=== PATIENT | male | born 1980 | race Caucasian/White ===

== ENCOUNTER 2017-03-07 20:46 | Emergency (ER) | payer OTHER ==
[~2017-03-07] VITALS: Ht 180.3 cm; Wt 102.1 kg
--- NOTE | 2017-03-07 21:07 | ED GI/GU/ABDOMINAL COMPLAINT ---
History of Present Illness General Chief Complaint: General Adult Stated Complaint: "THINK I HAVE A KIDNEY STONE" BACK PAIN PER PT Source: patient, family Exam Limitations: no limitations Vital Signs & Intake/Output Vital Signs & Intake/Output Vital Signs Date Time Temp Pulse Resp B/P B/P Pulse O2 O2 Flow FiO2 Mean Ox Delivery Rate 03/074 98.1 62 18 119/71 98 Room Air 03/07 2247 97.9 60 16 116/71 98 Room Air 03/073 98.4 87 18 144/88 98 Room Air ED Intake and Output 03/08 0000 03/07 1200 Intake Total 1000 Output Total Balance 1000 Intake, IV 1000 Patient 225 lb Weight Weight Reported by Patient Measurement Method Allergies Coded Allergies: Penicillins (ANAPHILACTIC 03/07/17) Reconcile Medications Ondansetron (Zofran Odt) 4 MG TAB.RAPDIS 1 TAB SL TID PRN nausea Oxycodone HCl/Acetaminophen (Percocet 5-325 MG Tablet) 5 MG-325 MG TABLET 1 TAB PO Q6H PRN PAIN Tamsulosin HCl (Flomax) 0.4 MG CAP.ER.24H 1 CAP PO DAILY PRN kidney stone Triage Note: PT TO TRIAGE WITH C/O R FLANK PAIN 05/22 AND NAUSEA SINCE MONDAY. HX OF KIDNEY STONES. PT PASSED SMALL KIDNEY STONE ON MONDAY AND HAD BLOOD IN URINE, BUT PAIN NOT SUBSIDED. VSS. Triage Nurses Notes Reviewed? yes HPI: Patient is a 36-year-old male presents complaining of right flank pain that radiates to the right lower quadrant. Patient reports that pain has been over the past 1 week. Pain similar to previous kidney stone pain which he normally takes a dose of pain medication and symptoms improved. Patient last took a dose of pain medication over the weekend, continues with pain. Patient was having hematuria over the weekend which has since resolved. Nausea and chills at onset over the past couple of days which is unusual for his previous episodes of kidney stones. Patient passed multiple kidney stones over the weekend. Pain is currently 6-7 out of 10. Last bowel movement was 3 days ago. Patient denies fevers, vomiting, dysuria, frequency. (RADHA MARTINEZ,ORLANOD) Past History Travel History Traveled to [place] past 21 day No Medical History Any Pertinent Medical History? see below for history Renal: nephrolithiasis Surgical History Surgical History: non-contributory Psychosocial History What is your primary language Mozambican Tobacco Use: Never used Family History Hx Contributory? No (OR[place]O PALACIO) Review of Systems Review of Systems Constitutional: Reports: chills. Denies: fever. EENTM: Reports: no symptoms. Respiratory: Denies: cough, short of breath. Cardiovascular: Denies: chest pain. GI: Reports: see HPI, abdominal pain, constipation, nausea. Denies: diarrhea, vomiting. Genitourinary: Reports: see HPI, hematuria (resolved). Musculoskeletal: Reports: back pain. Skin: Reports: no symptoms. Neurological/Psychological: Reports: no symptoms. Hematologic/Endocrine: Reports: no symptoms. Immunologic/Allergic: Reports: no symptoms. (ORLANDO PALACIO) Physical Exam Physical Exam General Appearance: well developed/nourished, alert, awake Head: atraumatic, normal appearance Eyes: Bilateral: normal appearance, PERRL, EOMI. Ears, Nose, Throat, Mouth: hearing grossly normal, moist mucous membrane Neck: normal inspection, supple, full range of motion Respiratory: normal breath sounds, chest non-tender, no respiratory distress, lungs clear Cardiovascular: regular rate/rhythm Gastrointestinal: normal bowel sounds, soft, mild right lower quadrant tenderness Back: normal inspection, normal range of motion, mild right CVA tenderness Extremities: normal range of motion Neurologic/Psych: no motor/sensory deficits, awake, alert, oriented x 3, normal gait, normal mood/affect Skin: intact, normal color, warm/dry Core Measures ACS in differential dx? No Severe Sepsis Present: No Septic Shock Present: No (ORLANDO PALACIO) Progress Differential Diagnosis: appendicitis, biliary colic, cholecystitis, diverticulitis, gastritis, hepatitis, hernia, pyelonephritis, SBO, testicular torsion, ureterolithiasis, urinary retention, urethritis, UTI/pyelo Plan of Care: Orders Procedure Date/time Status LIPASE 03/07 2109 Complete COMPREHENSIVE METABOLIC PANEL 03/07 2109 Complete CBC WITHOUT DIFFERENTIAL 03/07 2109 Complete URINALYSIS 03/07 2102 Complete Laboratory Tests 03/07/172144: Anion Gap 13, Estimated GFR 53 L, BUN/Creatinine Ratio 10.0, Glucose 100 H, Calcium 9.2, Total Bilirubin 1.0, AST 20, ALT 39, Alkaline Phosphatase 48, Total Protein 7.7, Albumin 4.5, Globulin 3.2, Albumin/Globulin Ratio 1.4, Lipase 94, CBC w Diff NO MAN DIFF REQ, RBC 5.27, MCV 83.5, MCH 28.3, RDW 13.2, MPV 8.6, Gran % 68.8, Lymphocytes % 19.2 L, Monocytes % 10.4 H, Eosinophils % 1.3, Basophils % 0.3, Absolute Granulocytes 4.3, Absolute Lymphocytes 1.2, Absolute Monocytes 0.6, Absolute Eosinophils 0.1, Absolute Basophils 0, PUBS MCHC 33.8, Urine Color STRAW, Urine Clarity CLEAR, Urine pH 7.0, Ur Specific [place] 1.010, Urine Protein NEG, Urine Ketones NEG, Urine Nitrite NEG, Urine Bilirubin NEG, Urine Urobilinogen 0.2, Ur Leukocyte Esterase NEG, Ur Microscopic EXAM NOT REQUIRED, Urine Hemoglobin NEG, Urine Glucose NEG 03/07/2017 11:11:57 PM: Results discussed with patient and his . Pain is well-controlled at this time. Patient afebrile, nontoxic appearing. Patient has a urologist in [place] that he as seen previously. Patient to contact the urologist that he as seen previously or Dr. Landis for close follow-up (RADHA MARTINEZ,[place]) Diagnostic Imaging: Viewed by Me: CT Scan, Ultrasound. Discussed w/RAD: CT Scan, Ultrasound. Radiology Impression: PATIENT: ISSA MARIE PRESENT AGE: 36 PATIENT ACCOUNT NO: [id number] : 79 LOCATION: [facility] ORDERING PHYSICIAN: [place] MARTINEZ SERVICE DATE: 03/07/17 EXAM TYPE: CAT - CT ABD & PELVIS W/O IV CONTRAS EXAMINATION: CT ABDOMEN AND PELVIS WITHOUT CONTRAST CLINICAL INFORMATION: Right flank pain. COMPARISON: None TECHNIQUE: Multidetector volumetric imaging was performed from the superior aspect of the liver through the pubic symphysis. Sagittal and coronal reformatted images were obtained on the technologist's workstation. DLP: 547.96 mGy-cm FINDINGS: LUNG BASES: The visualized lung bases are unremarkable. LIVER, GALLBLADDER, AND BILIARY TREE: The liver is normal in size, shape, and attenuation. No focal hepatic lesion or biliary ductal dilatation is present. The gallbladder is unremarkable with no evidence of radiopaque gallstones, gallbladder wall thickening, or obvious pericholecystic inflammatory changes. PANCREAS: Unremarkable. SPLEEN: Unremarkable. ADRENAL GLANDS: Unremarkable. KIDNEYS AND URETERS: Moderate hydronephrosis of the right kidney with dilatation of renal pelvis and calyces and right ureter to the ureterovesical junction. There is an obstructing 5 x 8 mm stone in the distal right ureter, coronal image 61. No stone in the right kidney. There is a nonobstructive 3 mm stone lower pole of left kidney. Less than 1 mm stone in the midpole of left kidney. No hydronephrosis of left kidney. No ureteral stone on the left. BLADDER: Unremarkable. GASTROINTESTINAL TRACT: The small and large bowel are unremarkable. The appendix is unremarkable. ABDOMINAL WALL: No significant hernia is appreciated. LYMPH NODES: Normal. VASCULAR: Unremarkable. PELVIC VISCERA: Unremarkable. OSSEOUS STRUCTURES: Unremarkable. IMPRESSION: Hydronephrosis of the right kidney due to an obstructing 5 x 8 mm stone at the right ureterovesical junction. DICTATED BY: SHIV JIMENEZ MD DATE/TIME DICTATED: 03/07/172247 PROJECT MANAGEMENT PROFESSOR:CARMEN DATE/TIME TRANSCRIBED:03/07/172247 CONFIDENTIAL, DO NOT COPY WITHOUT APPROPRIATE AUTHORIZATION. <Electronically signed in Other Vendor System> SIGNED BY: SHIV JIMENEZ MD 03/07/172256 Initial ED EKG: none (ORLANDO PALACIO) Departure Departure Time of Disposition: 2311 Disposition: HOME OR SELF CARE Condition: Stable Clinical Impression Primary Impression: Renal colic on right side Referrals: CISCO EWING,KVNG LR MD,HUGO Fofana (PCP/Family) Additional Instructions: Follow up with your urologist or with Dr. Landis(urologist) this week for further evaluation. Call in the morning for appointment. Return to the ER if fevers, unable to stay hydrated, unable to urinate or worsening of symptoms. Departure Forms: Customer Survey General Discharge Information Prescriptions: Current Visit Scripts Tamsulosin HCl (Flomax) 1 CAP PO DAILY PRN kidney stone #7 CAP Oxycodone HCl/Acetaminophen (Percocet 5-325 MG Tablet) 1 TAB PO Q6H PRN PAIN #10 TAB Ondansetron (Zofran Odt) 1 TAB SL TID PRN nausea #10 TAB (OR[place]O PALACIO) PA/JOB SITE SUPERVISOR Co-Sign Statement Statement: ED Attending supervision documentation- [] I saw and evaluated the patient. I have also reviewed all the pertinent lab results and diagnostic results. I agree with the findings and the plan of care as documented in the PA's/JOB SITE SUPERVISOR's documentation. [X] I have reviewed the ED Record and agree with the PA's/JOB SITE SUPERVISOR's documentation. [] Additions or exceptions (if any) to the PAs/JOB SITE SUPERVISOR's note and plan are summarized below: [] (JOSEPHINE EWING,BRAYAN Anderson)
[2017-03-07 21:57] LABS: ABSOLUTE BASOPHIL COUNT 0 /CUMM (0.0-0.2); ABSOLUTE EOSINOPHIL COUNT 0.1 /CUMM (0.0-0.7); ABSOLUTE GRANULOCYTE CT 4.3 /CUMM (1.4-6.5); ABSOLUTE LYMPH COUNT 1.2 /CUMM (1.2-3.4); ABSOLUTE MONOCYTE COUNT 0.6 /CUMM (0.10-0.60); BASOPHIL % 0.3 % (0.0-2.0); EOSINOPHIL % 1.3 % (0-5); GRANULOCYTE % 68.8 % (42.2-75.2); MEAN CORPUSCULAR HGB 28.3 PG (27.0-31.0); MEAN CORPUSCULAR HGB CONC 33.8 G/DL (33.0-37.0); MEAN CORPUSCULAR VOLUME 83.5 FL (80.0-94.0); MEAN PLATELET VOLUME 8.6 FL (7.4-10.4); PLATELET COUNT 181 /CUMM (130-400); RBC DISTRIBUTION WIDTH 13.2 % (11.5-14.5); RED BLOOD CELL CT 5.27 /CUMM (4.70-6.10); WHITE BLOOD CELL COUNT 6.2 /CUMM (4.8-10.8)
--- NOTE | 2017-03-07 21:58 | ULTRASOUND REPORT ---
EXAMINATION: US RETROPERITONEAL COMPLETE (RENAL) CLINICAL INFORMATION: Right flank pain.. COMPARISON: None TECHNIQUE: Real-time imaging of the kidneys and bladder. Color Doppler exam utilized. FINDINGS: RIGHT KIDNEY: 13.1 x 6.8 x 7.8 cm (SAG x AP x TRV). Moderate hydronephrosis of the kidney with dilatation of renal pelvis and calyces. No stone identified in the renal pelvis or the ureter. There are nonobstructive calculi. In the lower pole there is a stone measuring 4 x 3 x 3 mm. In the midpole there is a 5 x 5 x 4 mm stone. LEFT KIDNEY: 12.8 x 5.1 x 5.7 cm (SAG x AP x TRV). There is no hydronephrosis. There are stones in the kidney which are nonobstructive. In the upper pole there is a stone measuring 5 x 3 x 4 mm. In the midpole there is a stone measuring 5 x 3 x 4 mm. In the lower pole there is a stone measuring 4 x 3 x 4 mm. BLADDER: Bladder is partially filled. Ureteral jet is seen on the left but not on the right. Prostate measures 2.6 x 2.9 x 3.4 cm. IMPRESSION: 1. Hydronephrosis of right kidney. No ureteral jets seen in bladder on the right side. CT stone study could be helpful for further assessment. 2. Bilateral nonobstructive renal stones.
--- NOTE | 2017-03-07 22:57 | CT SCAN REPORT ---
EXAMINATION: CT ABDOMEN AND PELVIS WITHOUT CONTRAST CLINICAL INFORMATION: Right flank pain. COMPARISON: None TECHNIQUE: Multidetector volumetric imaging was performed from the superior aspect of the liver through the pubic symphysis. Sagittal and coronal reformatted images were obtained on the technologist's workstation. DLP: 547.96 mGy-cm FINDINGS: LUNG BASES: The visualized lung bases are unremarkable. LIVER, GALLBLADDER, AND BILIARY TREE: The liver is normal in size, shape, and attenuation. No focal hepatic lesion or biliary ductal dilatation is present. The gallbladder is unremarkable with no evidence of radiopaque gallstones, gallbladder wall thickening, or obvious pericholecystic inflammatory changes. PANCREAS: Unremarkable. SPLEEN: Unremarkable. ADRENAL GLANDS: Unremarkable. KIDNEYS AND URETERS: Moderate hydronephrosis of the right kidney with dilatation of renal pelvis and calyces and right ureter to the ureterovesical junction. There is an obstructing 5 x 8 mm stone in the distal right ureter, coronal image 61. No stone in the right kidney. There is a nonobstructive 3 mm stone lower pole of left kidney. Less than 1 mm stone in the midpole of left kidney. No hydronephrosis of left kidney. No ureteral stone on the left. BLADDER: Unremarkable. GASTROINTESTINAL TRACT: The small and large bowel are unremarkable. The appendix is unremarkable. ABDOMINAL WALL: No significant hernia is appreciated. LYMPH NODES: Normal. VASCULAR: Unremarkable. PELVIC VISCERA: Unremarkable. OSSEOUS STRUCTURES: Unremarkable. IMPRESSION: Hydronephrosis of the right kidney due to an obstructing 5 x 8 mm stone at the right ureterovesical junction.
[2017-03-07 23:04] VITALS: BP 119/71
[2017-03-07] MEDS ORDERED: PERCOCET 5-3251 EACH PO (23:15)
[2017-03-07] MEDS ORDERED: ZOFRAN ODT4 M1 SL (23:15)
[2017-03-07] MEDS ORDERED: FLOMAX0.4 M1 PO (23:15)
== END 2017-03-07 23:21 ==
LOC: ERH 20:46
PROVIDERS: Physician Assistant
DX: N23 Unspecified renal colic (principal)
CPT/HCPCS: 74176; 76775; 81003; 96374; 96375; J1885; J2405